=== PATIENT | female | born 1960 ===

== ENCOUNTER 2018-01-27 11:38 | Emergency (ER) | payer OTHER ==
--- NOTE | 2018-01-27 11:41 | EDM.PDOC ---
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 Patient is in no distress she has no motor weakness or loss and is at her baseline otherwise stroke score is 0 No fever nausea vomiting diarrhea constipation chest pain shortness of breath dizziness or palpitation no bowel or urine symptoms ] Review of systems: As per history of present illness and below otherwise all systems reviewed and negative. Past medical history: As per history of present illness and as reviewed below otherwise noncontributory. Surgical history: As per history of present illness and as reviewed below otherwise noncontributory. Social history: No reported history of drug or alcohol abuse. Family history: As per history of present illness and as reviewed below otherwise noncontributory. Physical exam: HEENT: Atraumatic, normocephalic, pupils reactive, negative for conjunctival pallor or scleral icterus, mucous membranes moist, throat clear, neck supple, nontender, trachea midline. No visual field deficits Lungs: Clear to auscultation, breath sounds equal bilaterally, chest nontender. Heart: S1S2, regular, negative for clicks, rubs, or JVD. Abdomen: Soft, nondistended, nontender. Negative for masses or hepatosplenomegaly. Negative for costovertebral tenderness. Pelvis: Stable nontender. Genitourinary: Deferred. Rectal: Deferred. Extremities: Atraumatic, negative for cords or calf pain. Neurovascular unremarkable. Neuro: Awake, alert, oriented. Cranial nerves II through XII unremarkable. Cerebellum unremarkable. Motor and sensory unremarkable throughout. Exam nonfocal. Diagnostics: [CBC CMP UA troponin INR EKG Chest 1 view] Head CT no contrast Therapeutics: [Macrobid Continue current medications Follow-up with primary care 2 weeks ] Impression: [Blurred vision on right, known to need spectacles-noncompliant Stroke score 0 Left SCM spasm Headache Leukocyte esterase trace positive] Definitive disposition and diagnosis as appropriate pending reevaluation and review of above. Posterior Headache Pain Score (Numeric/FACES): 7 - Related Data Allergies Allergy/AdvReac Type Severity Reaction Status Date / Time codeine Allergy Vomiting Verified 01/27/18 11:39 meloxicam [From Mobic] Allergy Swelling Verified 01/27/18 11:39 Penicillins Allergy Rash Verified 01/27/18 11:39 Home Meds: Home Meds . [No Known Home Meds] 02/03/14 [History] ED ROS GENERAL - Review of Systems Review Of Systems: See Below ED EXAM, GENERAL - Physical Exam Exam: See Below Course - Vital Signs Last Recorded V/S: Last Vital Signs Temp 97.7 F 01/27/18 11:42 Pulse 84 01/27/18 11:42 Resp 16 01/27/18 11:42 BP 158/100 H 01/27/18 11:42 Pulse Ox 97 01/27/18 11:42 - Orders/Labs/Meds Orders: Active Orders 24 hr Category Date Time Status EKG Documentation Completion [RC] STAT Care 01/27/18 11:40 Active CULTURE URINE [RM] Stat Lab 01/27/18 12:55 Ordered INR,PT,PROTHROMBIN TIME [COAG] Stat Lab 01/27/18 11:40 Received UA W/MICROSCOPIC [URIN] Stat Lab 01/27/18 12:16 Ordered Labs: Laboratory Tests 01/27/18 01/27/18 01/27/18 Range/Units 11:40 11:40 12:16 WBC 6.13 (4.0-11.0) K/uL RBC 4.78 (4.30-5.90) M/uL Hgb 14.9 (12.0-16.0) g/dL Hct 44.1 (36.0-46.0) % MCV 92.3 (80.0-98.0) fL MCH 31.2 (27.0-32.0) pg MCHC 33.8 (31.0-37.0) g/dL RDW Std Deviation 44.5 (28.0-62.0) fl RDW Coeff of Morgan 13 (11.0-15.0) % Plt Count 295 (150-400) K/uL MPV 9.90 (7.40-12.00) fL Neut % (Auto) 43.8 L (48.0-80.0) % Lymph % (Auto) 45.5 H (16.0-40.0) % Hill % (Auto) 6.2 (0.0-15.0) % Eos % (Auto) 3.4 (0.0-7.0) % Baso % (Auto) 1.1 (0.0-1.5) % Neut # (Auto) 2.7 (1.4-5.7) K/uL Lymph # (Auto) 2.8 H (0.6-2.4) K/uL Hill # (Auto) 0.4 (0.0-0.8) K/uL Eos # (Auto) 0.2 (0.0-0.7) K/uL Baso # (Auto) 0.1 (0.0-0.1) K/uL Nucleated RBC % 0.0 /100WBC Nucleated RBCs # 0 K/uL Sodium 139 (136-145) mmol/L Potassium 3.4 L (3.5-5.1) mmol/L Chloride 101 (98-107) mmol/L Carbon Dioxide 31.2 (21.0-32.0) mmol/L BUN 13 (7.0-18.0) mg/dL Creatinine 1.0 (0.6-1.0) mg/dL Est Cr Clr Drug Dosing 54.24 mL/min Estimated GFR (MDRD) 57.4 ml/min Glucose 115 H (74-106) mg/dL Calcium 9.3 (8.5-10.1) mg/dL Total Bilirubin 0.4 (0.2-1.0) mg/dL AST 27 (15-37) IU/L ALT 43 (14-63) IU/L Alkaline Phosphatase 56 (46-116) U/L Troponin I < 0.050 (0.000-0.056) ng/mL Total Protein 8.1 (6.4-8.2) g/dL Albumin 4.3 (3.4-5.0) g/dL Globulin 3.8 H (2.0-3.5) g/dL Albumin/Globulin Ratio 1.1 L (1.3-2.8) Urine Color YELLOW Urine Appearance SLT CLOUDY Urine pH 7.0 (5.0-8.0) Ur Specific [place] 1.020 (1.001-1.035) Urine Protein NEGATIVE (NEGATIVE) mg/dL Urine Glucose (UA) NEGATIVE (NEGATIVE) mg/dL Urine Ketones NEGATIVE (NEGATIVE) mg/dL Urine Occult Blood NEGATIVE (NEGATIVE) Urine Nitrite NEGATIVE (NEGATIVE) Urine Bilirubin NEGATIVE (NEGATIVE) Urine Urobilinogen 0.2 (<2.0) EU/dL Ur Leukocyte Esterase TRACE (NEGATIVE) Urine RBC 0-2 (0-2/HPF) Urine WBC 0-2 (0-5/HPF) Ur Epithelial Cells FEW (NONE-FEW) Urine Bacteria FEW (NEGATIVE) Departure - Departure Time of Disposition: 13:01 Disposition: Home, Self-Care 01 Condition: Good Clinical Impression: UTI (urinary tract infection), Headache - Discharge Information Forms: ED Department Discharge Additional Instructions: Medication as prescribed Continue your current home medications as directed Return if symptoms persist or worsen or new concerning symptoms develop Follow-up with primary care in 2 weeks sooner as needed The following information is given to patients seen in the emergency department who are being discharged to home. This information is to outline your options for follow-up care. We provide all patients seen in our emergency department with a follow-up referral. The need for follow-up, as well as the timing and circumstances, are variable depending upon the specifics of your emergency department visit. If you don't have a primary care physician on staff, we will provide you with a referral. We always advise you to contact your personal physician following an emergency department visit to inform them of the circumstance of the visit and for follow-up with them and/or the need for any referrals to a consulting specialist. The emergency department will also refer you to a specialist when appropriate. This referral assures that you have the opportunity for follow-up care with a specialist. All of these measure are taken in an effort to provide you with optimal care, which includes your follow-up. Under all circumstances we always encourage you to contact your private physician who remains a resource for coordinating your care. When calling for follow-up care, please make the office aware that this follow-up is from your recent emergency room visit. If for any reason you are refused follow-up, please contact the [facility] emergency department at and asked to speak to the emergency department charge nurse. - My Orders Last 24 Hours: My Active Orders 01/27/18 11:40 EKG Documentation Completion [RC] STAT INR,PT,PROTHROMBIN TIME [COAG] Stat 01/27/18 12:16 UA W/MICROSCOPIC [URIN] Stat 01/27/18 12:55 CULTURE URINE [RM] Stat - Assessment/Plan Last 24 Hours: My Active Orders 01/27/18 11:40 EKG Documentation Completion [RC] STAT INR,PT,PROTHROMBIN TIME [COAG] Stat 01/27/18 12:16 UA W/MICROSCOPIC [URIN] Stat 01/27/18 12:55 CULTURE URINE [RM] Stat
--- NOTE | 2018-01-27 12:27 | CR ---
EXAMINATION: Portable chest radiograph. HISTORY: Pain. FINDINGS: The trachea is midline. The cardiomediastinal silhouette is within normal limits. No pulmonary infilt rates, effusions or pneumothorax. Mild hyperinflation and interstitial prominence. Osseous structures appear unremarkable. IMPRESSION: No acute cardiopulmonary process.
--- NOTE | 2018-01-27 12:41 | CT ---
EXAMINATION: Non contrast CT head. Coronal and sagittal reformats. HISTORY: Pain FINDINGS: No evidence of intra or extra axial hemorrhage, mass, midline shift, hydrocephalus or edema. Small o ld lacunar infarcts noted within the left periventricular distribution. No hypoattenuation changes in the major vascular territories to suggest acute infarct. No abnormal intracranial calcifications are detected. No evidence of substantial vascular calcificat ions. Paranasal sinuses and mastoid air cells are well aerated without substantial findings. Orbits and gl obes are symmetric. Pituitary fossa appears unremarkable. Calvarium is intact. No evidence of skull fracture. IMPRESSION: No acute intracranial findings.
[2018-01-27 12:46] LABS: CHLORIDE,CL 101 mmol/L (98-107); SODIUM,NA 139 mmol/L (136-145)
[2018-01-27] MEDS ORDERED: Sodium Chloride 0.9% 1,000 ML IV SCH ×2 (13:45→13:46)
== END 2018-01-27 13:15 | disposition home or self-care (01) ==
LOC: MW.ED 11:38
DX: N39.0 Urinary tract infection, site not specified (principal); R51 Headache; M62.838 Other muscle spasm; H53.8 Other visual disturbances; Z88.8 Allergy status to other drugs, medicaments and biological substances; Z88.0 Allergy status to penicillin
CPT/HCPCS: 36415; 70450; 71045; 80053; 81001; 84484; 85025; 85610; 87086; 93005; 96360; 96361; 99285; J7040

== ENCOUNTER 2021-09-23 12:08 | Emergency (ER) | payer MEDICAID, MEDICARE ==
[2021-09-23] MEDS ORDERED: Sodium Chloride 0.9% 2.5 ML Syringe FLUSH PRN (13:43)
[2021-09-23] MEDS ORDERED: Sodium Chloride 0.9% 10 ML Syringe FLUSH PRN (13:43)
[2021-09-23] MEDS ORDERED: Sodium Chloride 0.9% 1,000 ML IV ONE (13:57)
[2021-09-23 14:25] LABS: BLOOD UREA NITROGEN,BUN 17 mg/dL (7.0-18.0); CHLORIDE,CL 97 mmol/L (98-107); GLUCOSE RANDOM 122 mg/dL (74-106); POTASSIUM,K 3.8 mmol/L (3.5-5.1); SODIUM,NA 139 mmol/L (136-145)
[2021-09-23] MEDS ORDERED: Iopamidol 755 MG/ML 500 ML Multipack Bottle IVPUSH ONE (19:10)
== END 2021-09-23 16:12 | disposition home or self-care (01) ==
LOC: MW.ED 12:08
DX: J44.1 Chronic obstructive pulmonary disease with (acute) exacerbation (principal); J43.9 Emphysema, unspecified; I10 Essential (primary) hypertension; E78.00 Pure hypercholesterolemia, unspecified; F17.200 Nicotine dependence, unspecified, uncomplicated; Z86.16 Personal history of COVID-19; Z88.0 Allergy status to penicillin; Z88.1 Allergy status to other antibiotic agents; Z79.1 Long term (current) use of non-steroidal anti-inflammatories (NSAID); Z79.82 Long term (current) use of aspirin; Z79.899 Other long term (current) drug therapy
CPT/HCPCS: 36415; 71275; 80053; 84484; 85025; 85379; 87804; 93005; 99285; J7030; Q9967

== ENCOUNTER 2021-10-25 09:17 | Emergency (ER) | payer MEDICAID ==
[2021-10-25] MEDS ORDERED: Sodium Chloride 0.9% 10 ML Syringe FLUSH PRN (09:30)
[2021-10-25] MEDS ORDERED: Morphine 4 MG/ML VIAL IVPUSH ONE ×2 (09:30→11:19)
[2021-10-25] MEDS ORDERED: Ondansetron 4 MG/2 ML SDV IVPUSH ONE ×2 (09:30→11:19)
[2021-10-25] MEDS ORDERED: Aspirin 81 MG Tab.Chew PO ONE (09:30)
[2021-10-25] MEDS ORDERED: Sodium Chloride 0.9% 2.5 ML Syringe FLUSH PRN (09:30)
[2021-10-25 10:17] LABS: BLOOD UREA NITROGEN,BUN 12 mg/dL (7.0-18.0); CARBON DIOXIDE,CO2 28.2 mmol/L (21.0-32.0); CHLORIDE,CL 99 mmol/L (98-107); GLUCOSE RANDOM 105 mg/dL (74-106); POTASSIUM,K 3.1 mmol/L (3.5-5.1); SODIUM,NA 138 mmol/L (136-145)
[2021-10-25] MEDS ORDERED: Iopamidol 755 MG/ML 500 ML Multipack Bottle IVPUSH STA (11:40)
== END 2021-10-25 14:45 | disposition home or self-care (01) ==
LOC: MW.ED 09:17
DX: R07.2 Precordial pain (principal); J44.9 Chronic obstructive pulmonary disease, unspecified; Z86.16 Personal history of COVID-19; Z88.5 Allergy status to narcotic agent; Z88.0 Allergy status to penicillin; Z88.8 Allergy status to other drugs, medicaments and biological substances
CPT/HCPCS: 36415; 71045; 71275; 80053; 83880; 84484; 85025; 85379; 93005; 96374; 96375; 96376; 99285; A9270; J2270; J2405; Q9967; 93010; 99284

== ENCOUNTER 2023-06-14 13:26 | Emergency (ER) | payer OTHER ==
[2023-06-14 14:08] LABS: BASOPHILS PERCENT AUTO 1.3 % (0.0-1.0); EOSINOPHILS ABSOLUTE AUTO 0.11 K/uL (0.00-0.45); EOSINOPHILS PERCENT AUTO 1.5 % (0.0-6.0); HEMATOCRIT 47.5 % (37.0-47.0); HEMOGLOBIN 15.9 g/dL (12.0-16.0); IMMATURE GRAN ABSOLUTE AUTO 0.01 K/uL (0.00-0.05); IMMATURE GRAN PERCENT AUTO 0.1 % (0.0-0.4); LYMPHOCYTES ABSOLUTE AUTO 3.99 K/uL (1.00-4.80); LYMPHOCYTES PERCENT AUTO 52.9 % (24.0-44.0); MEAN CORPUSCULAR HEMOGLOBIN 30.5 pg (28.0-32.0); MEAN CORPUSCULAR HGB CONC 33.5 g/dL (32.0-36.0); MEAN PLATELET VOLUME 9.7 fL (9.4-12.3); MONOCYTES ABSOLUTE AUTO 0.46 K/uL (0.00-0.80); MONOCYTES PERCENT AUTO 6.1 % (0.0-8.0); NEUTROPHILS ABSOLUTE AUTO 2.87 K/uL (1.80-7.70); NEUTROPHILS PERCENT AUTO 38.1 % (41.0-71.0); PLATELET COUNT,PLT 326 K/uL (150-400); RED BLOOD CELL COUNT 5.22 M/uL (4.10-5.30); WHITE BLOOD CELL COUNT,WBC 7.54 K/uL (3.9-11.3)
[2023-06-14] MEDS ORDERED: Sodium Chloride 0.9% 1,000 ML IV ONE (14:14)
[2023-06-14] MEDS ORDERED: Morphine 2 MG/ML SYRINGE IVPUSH ONE (14:14)
[2023-06-14] MEDS ORDERED: Ondansetron 4 MG/2 ML SDV IVPUSH ONE (14:15)
[2023-06-14 14:40] LABS: A/G RATIO 1.1 (0.9-1.6); ALBUMIN 4.3 g/dL (3.4-5.0); BILIRUBIN TOTAL 0.3 mg/dL (0.2-1.0); CARBON DIOXIDE,CO2 29.3 mmol/L (21.0-32.0); CREATININE 1.1 mg/dL (0.6-1.0); EST CRCL DRUG DOSING (CG) 45.79 mL/min; POTASSIUM,K 3.4 mmol/L (3.5-5.1); PROTEIN TOTAL,TP 8.3 g/dL (6.4-8.2); TSH ULTRASENSITIVE 0.97 uIU/mL (0.36-3.74)
== END 2023-06-14 16:32 | disposition home or self-care (01) ==
LOC: MW.ED 13:26
DX: R07.89 Other chest pain (principal); I10 Essential (primary) hypertension; E78.00 Pure hypercholesterolemia, unspecified; J44.9 Chronic obstructive pulmonary disease, unspecified; Z86.73 Personal history of transient ischemic attack (TIA), and cerebral infarction without residual deficits; Z86.16 Personal history of COVID-19; Z79.82 Long term (current) use of aspirin; Z79.899 Other long term (current) drug therapy; Z88.0 Allergy status to penicillin; Z88.5 Allergy status to narcotic agent; Z88.8 Allergy status to other drugs, medicaments and biological substances
CPT/HCPCS: 36415; 71045; 80053; 84443; 84484; 85025; 85379; 96361; 96374; 96375; 99285; J2270; J2405; J7030; 93010; 99284